=== PATIENT | female | born 1985 | race African-American/Black ===

== ENCOUNTER 2016-11-08 07:19 | Emergency (ER) | payer BC ==
[2016-11-08] MEDS ORDERED: NO HOME MEDICATION XX (09:26)
[2016-11-08] MEDS ORDERED: VIGAMOX3 M1 OP (09:44)
== END 2016-11-08 09:57 ==
LOC: EDMED 07:19
DX: H10.9 Unspecified conjunctivitis (principal); E11.9 Type 2 diabetes mellitus without complications; Z88.0 Allergy status to penicillin